=== PATIENT | male | born 1995 | race Caucasian/White ===

== ENCOUNTER 2018-02-09 11:37 | Day surgery (SDC) | payer MEDICARE, OTHER ==
[~2018-02-09] VITALS: Ht 185.4 cm; Wt 87.5 kg
[2018-02-09] MEDS ORDERED: BUSP10 PO (12:01)
[2018-02-09] MEDS ORDERED: L-Tryptophan500 MG PO (12:04)
[2018-02-09] MEDS ORDERED: MELA3 PO (12:05)
[2018-02-09] MEDS ORDERED: Senna8.6 MG PO (12:05)
[2018-02-09] MEDS ORDERED: RISP1 PO (12:06)
[2018-02-09] MEDS ORDERED: RISP.5 PO (12:06)
== END 2018-02-09 16:04 | disposition home or self-care (01) ==
LOC: ORSCSDS 11:37
PROVIDERS: Dentist Pediatric Dentistry
PROC: 0CRWXJ2 Replacement of Upper Tooth, All, with Synthetic Substitute, External Approach (ICD-10-PCS; principal; 2018-02-09 12:00)
PROC: 0CDXXZ0 Extraction of Lower Tooth, Single, External Approach (ICD-10-PCS; principal; 2018-02-09 12:00)
PROC: 0CRXXJ2 Replacement of Lower Tooth, All, with Synthetic Substitute, External Approach (ICD-10-PCS; principal; 2018-02-09 12:00)
DX: K02.9 Dental caries, unspecified (principal); F84.0 Autistic disorder; R62.50 Unspecified lack of expected normal physiological development in childhood; Z79.899 Other long term (current) drug therapy
CPT/HCPCS: J1100; J2250; J2405; J3010; J7120